=== PATIENT | male | born 1990 | race African-American/Black ===

== ENCOUNTER 2018-08-17 12:51 | Inpatient (IN) | payer OTHER ==
[2018-08-17 13:59] VITALS: BMI 22.1
[2018-08-17] MEDS ORDERED: ACETAMINOPHEN 325 MG TABLET (FP) PO PRN (15:38)
[2018-08-17] MEDS ORDERED: P-EPHED 60MG/TRIPROLIDI 2.5MG TABLET PO PRN (15:38)
[2018-08-17] MEDS ORDERED: MAGNESIUM CITRATE 300 ML BOTTLE PO PRN (15:38)
[2018-08-17] MEDS ORDERED: guaiFENesin/D-METHORPHAN HB 10 ML UNIT-DOSE CUPS PO PRN (15:38)
[2018-08-17] MEDS ORDERED: MAG HYDROX/AL HYDROX/SIMETH 30 ML UNIT-DOSE CUP PO PRN (15:38)
[2018-08-17] MEDS ORDERED: IBUPROFEN 400 MG TABLET (FP) PO PRN (15:38)
[2018-08-17] MEDS ORDERED: MAGNESIUM HYDROX 2400MG/30ML ORAL SUSPENSION 30 ML CUP PO PRN (15:38)
[2018-08-17] MEDS ORDERED: hydrOXYzine PAMOATE 50 MG CAPSULE (FP) PO PRN (15:38)
[2018-08-17] MEDS ORDERED: LOPERAMIDE HCL 2 MG CAPSULE PO PRN (15:38)
[2018-08-17] MEDS ORDERED: MENTHOL/PHENOL 1 EACH UD MM PRN (15:38)
--- NOTE | 2018-08-17 15:48 | HP ---
Admission ROS [facility] Chief Complaint: THC, cocaine and amphetamine rehabilitation Allergies/Adverse Reactions: Allergies Allergy/AdvReac Type Severity Reaction Status Date / Time No Known Allergies Allergy Verified 08/17/18 15:30 History of Present Illness: 27 yo male with hx of nicotine, THC, amphetamine, cocaine rehabilitation. Reports first time seeking treating. PMHX: HIV+ and depression. Denies suicidal / homicidal ideation. Denies hx of seizures or blackouts. Longest period of sobriety three months, recently relapsed two months ago. Exam Limitations: No Limitations - Ebola screening Have you traveled outside of the country in the last 21 days: No Have you had contact with anyone from an Ebola affected area: No Have you been sick,other than usual withdrawal symptoms: No Do you have a fever: No - Review of Systems Constitutional: Chills, Unintentional Wgt. Loss (6 lbs in the past two weeks), Other (sleeps too much) EENT: reports: No Symptoms Reported Respiratory: reports: No Symptoms reported Cardiac: reports: No Symptoms Reported GI: reports: Nausea : reports: No Symptoms Reported Musculoskeletal: reports: Other (left lower rib pain) Integumentary: reports: No Symptoms Reported Neuro: reports: No Symptoms reported Endocrine: reports: No Symptoms Reported Hematology: reports: No Symptoms Reported Psychiatric: reports: No Sypmtoms Reported, Anxious, Depressed Other Systems: Reviewed and Negative Patient History - Patient Medical History Hx Anemia: No Hx Asthma: No Hx Chronic Obstructive Pulmonary Disease (COPD): No Hx Cancer: No Hx Cardiac Disorders: No Hx Congestive Heart Failure: No Hx Hypertension: No Hx Pacemaker: No HX Cerebrovascular Accident: No Hx Seizures: No Hx Dementia: No Hx Diabetes: No Hx Gastrointestinal Disorders: No Hx Liver Disease: No Hx Genitourinary Disorders: No Hx Sexually Transmitted Disorders: No Hx Renal Disease (ESRD): No Hx Thyroid Disease: No Hx Human Immunodeficiency Virus (HIV): Yes (dx 2013) Hx Hepatitis C: No Hx Depression: Yes Hx Suicide Attempt: No Hx Bipolar Disorder: No Hx Schizophrenia: No - Patient Surgical History Past Surgical History: No Anesthesia Reaction: No - PPD History Previous Implant?: No Documented Results: Negative w/o proof - Smoking Cessation Smoking history: Current some day smoker Have you smoked in the past 12 months: Yes Aproximately how many cigarettes per day: 1 Hx Chewing Tobacco Use: No Initiated information on smoking cessation: Yes 'Breaking Loose' booklet given: 08/17/18 - Substance & Tx. History Hx Alcohol Use: No Hx Substance Use: Yes (amphetamine) Substance Use Type: Cocaine, Marijuana Hx Substance Use Treatment: No - Substances Abused Cocaine Route: Smoking Frequency: 1-2 times per week Amount used: 2 gms. Age of first use: 26 Date of Last Use: 08/03/18 Crstal meth Route: Smoking Frequency: Daily Amount used: $120 Age of first use: 24 Date of Last Use: 08/03/18 Marijuana Route: Smoking Frequency: 1-2 times per week Amount used: $10 Age of first use: 13 Date of Last Use: 08/17/18 Family Disease History - Family Disease History Family History: Denies Admission Physical Exam [facility] - Vital Signs Vital Signs: Vital Signs - 24 hr 08/17/18 13:55 Temperature 97.6 F Pulse Rate 90 Respiratory 19 Rate Blood Pressure 131/84 - Physical General Appearance: Yes: No Apparent Distress, Thin, Anxious HEENTM: Yes: EOMI, Hearing grossly Normal, Normal ENT Inspection, Normocephalic , Normal Voice, NICK, Pharynx Normal Respiratory: Yes: Chest Non-Tender, Lungs Clear, Normal Breath Sounds Neck: Yes: Within Normal Limits, No masses,lesions,Nodules Breast: Yes: Breast Exam Deferred Cardiology: Yes: Regular Rhythm, Regular Rate Abdominal: Yes: Normal Bowel Sounds, Non Tender, Flat, Soft Genitourinary: Yes: Within Normal Limits Back: Yes: Normal Inspection Musculoskeletal: Yes: full range of Motion, Gait Steady, Pelvis Stable, Other ( left lower rib pain on palpation) Extremities: Yes: Normal Capillary Refill, Normal Inspection, Normal Range of Motion, Non-Tender 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 intact, Fully Oriented, Alert, Motor Strength 5/5, Normal Mood/Affect, Normal Response Integumentary: Yes: Normal Color, Dry, Warm Lymphatic: Yes: Within Normal Limits - Diagnostic (1) Marijuana dependence Current Visit: Yes Status: Acute (2) Cocaine dependence Current Visit: Yes Status: Acute Qualifiers: Substance use status: uncomplicated Qualified Code(s): F14.20 - Cocaine dependence, uncomplicated (3) HIV (human immunodeficiency virus infection) Current Visit: Yes Status: Chronic (4) Amphetamine dependence Current Visit: Yes Status: Acute [facility]HS Breath Alcohol Content Breath Alcohol Content: 0 Urine Drug Screen - Results Drug Screen Negative: No Urine Drug Screen Results: THC-Marijuana, AMP-Amphetamines Inpatient Rehab Admission - Initial Determination Are CD services needed?: Yes Free of communicable disease: Yes Not in need of hospitalization: Yes - Rehab Admission Criteria Previous failed treatment: No Poor recovery environment: Yes Comorbidities: Yes Lacks judgement: Yes Patient is meeting Inpatient Rehab admission criteria:: Yes
--- NOTE | 2018-08-17 19:47 | PN ---
[facility] Progress Note Note: Patient reports he will call his pharmacy and have his antivirals deliver tomorrow.
[2018-08-17] MEDS: THIAMINE HCL 100 MG TABLET (FP) PO SCH (22:19)
[2018-08-17 23:04] LABS: URINE APPEARANCE CLEAR; URINE BILIRUBIN NEGATIVE (<2.0 mg/dL); URINE COLOR STRAW; URINE GLUCOSE (UA) NEGATIVE (NEGATIVE); URINE KETONE NEGATIVE (NEGATIVE); URINE LEUK ESTERASE NEGATIVE (NEGATIVE); URINE NITRITE NEGATIVE (NEGATIVE); URINE PROTEIN NEGATIVE (NEGATIVE); URINE UROBILINOGEN NEGATIVE mg/dL (0.2-1.0)
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
[2018-08-18 10:49] LABS: HEMATOCRIT 39.2 % (35.4-49); HEMOGLOBIN 12.6 GM/dL (11.7-16.9); MCH 29.1 pg (25.7-33.7); MCHC 32.2 g/dl (32.0-35.9); MEAN CELL VOLUME 90.3 fl (80-96); PLATELET COUNT 254 K/MM3 (134-434); RBC 4.34 M/mm3 (4.00-5.60); RDW 13.6 % (11.9-15.9); WHITE BLOOD COUNT 4.3 K/mm3 (4.0-10.0)
--- NOTE | 2018-08-18 11:02 | EKG ---
Test Reason : Blood Pressure : / mmHG Vent. Rate : 080 BPM Atrial Rate : 080 BPM P-R Int : 124 ms QRS Dur : 078 ms QT Int : 370 ms P-R-T Axes : -88 059 056 degrees QTc Int : 426 ms UNUSUAL P AXIS, POSSIBLE ECTOPIC ATRIAL RHYTHM WITH PREMATURE SUPRAVENTRICULAR COMPLEXES ABNORMAL ECG Confirmed by MD DARIELA, SINTIA ([id number]) on 08/18/2018 11:02:11 AM Referred By: Confirmed By:SINTIA LYLE MD
[2018-08-18] MEDS: PRENATAL VITAMINS W/ FOLIC ACID TABLET (FP) PO SCH (11:05)
[2018-08-18 11:48] LABS: ALBUMIN 3.1 g/dl (3.4-5.0); ALK PHOS 77 U/L (45-117); ANION GAP 11 MMOL/L (8-16); BILIRUBIN,TOTAL 0.2 mg/dL (0.2-1); BLOOD UREA NITROGEN 17 mg/dL (7-18); CALCIUM 8.4 mg/dL (8.5-10.1); CHLORIDE 108 mmol/L (98-107); CO2 24 mmol/L (21-32); CREATININE 0.9 mg/dL (0.55-1.3); GLUCOSE,RANDOM 87 mg/dL (74-106); SGOT/AST 25 U/L (15-37); SGPT/ALT 32 U/L (13-61); SODIUM 142 mmol/L (136-145)
[2018-08-18] MEDS: THIAMINE HCL 100 MG TABLET (FP) PO SCH (21:51)
[2018-08-19] MEDS: PRENATAL VITAMINS W/ FOLIC ACID TABLET (FP) PO SCH (11:19)
[2018-08-19] MEDS: THIAMINE HCL 100 MG TABLET (FP) PO SCH (21:41)
[2018-08-20] MEDS: PRENATAL VITAMINS W/ FOLIC ACID TABLET (FP) PO SCH (10:47)
[2018-08-20] MEDS: THIAMINE HCL 100 MG TABLET (FP) PO SCH (21:44)
[2018-08-21] MEDS: PRENATAL VITAMINS W/ FOLIC ACID TABLET (FP) PO SCH (10:47)
[2018-08-21] MEDS: MELATONIN 5 MG TABLETS PO PRN (21:43)
[2018-08-21] MEDS: THIAMINE HCL 100 MG TABLET (FP) PO SCH (21:43)
[2018-08-22] MEDS: PRENATAL VITAMINS W/ FOLIC ACID TABLET (FP) PO SCH (11:03)
[2018-08-22] MEDS: THIAMINE HCL 100 MG TABLET (FP) PO SCH (22:00)
[2018-08-23] MEDS: PRENATAL VITAMINS W/ FOLIC ACID TABLET (FP) PO SCH (10:49)
[2018-08-23] MEDS: MELATONIN 5 MG TABLETS PO PRN (21:38)
[2018-08-23] MEDS: THIAMINE HCL 100 MG TABLET (FP) PO SCH (21:38)
[2018-08-24 07:33] VITALS: BP 111/55; PULSE 84; TEMP 98.3
[2018-08-24] MEDS: PRENATAL VITAMINS W/ FOLIC ACID TABLET (FP) PO SCH (10:06)
--- NOTE | 2018-08-24 10:09 | PN ---
Psychiatric Progress Note Vital Signs: Vital Signs Period Temp Pulse Resp BP Sys/Verduzco Pulse Ox Last 24 Hr 98.3 F 84 16-18 111/55 Date of Session: 08/24/18 Chief Complaint:: Discharge Note HPI: Patient addressing Cocaine, Amphetamine and Cannabis Dependence comorbid with Nicotine Dependence and Substance-Induced Psychotic Disorder ROS: HIV+ Current Medications: Active Medications Generic Name Dose Route Start Last Admin Trade Name Freq PRN Reason Stop Dose Admin Acetaminophen 650 mg 08/17/18 15:38 Tylenol - PO Q4H PRN FEVER Al Hydroxide/Mg Hydroxide 30 ml 08/17/18 15:38 Mylanta Oral Suspension - PO Q6H PRN DYSPEPSIA Eucalyptus/Menthol/Phenol/Sorbitol 1 each 08/17/18 15:38 Cepastat Lozenge - MM Q4H PRN SORE THROAT Guaifenesin 10 ml 08/17/18 15:38 Robitussin Dm - PO Q6H PRN COUGH Hydroxyzine Pamoate 50 mg 08/17/18 15:38 08/22/18 22:01 Vistaril - PO 50 mg Q4H PRN Administration AGITATION Ibuprofen 400 mg 08/17/18 15:38 Motrin - PO Q6H PRN Pain level 4-6 Loperamide HCl 4 mg 08/17/18 15:38 08/19/18 20:08 Imodium - PO 4 mg Q6H PRN Administration DIARRHEA Magnesium Citrate 300 ml 08/17/18 15:38 Citroma - PO Q48H PRN CONSTIPATION Magnesium Hydroxide 30 ml 08/17/18 15:38 Milk Of Magnesia - PO DAILY PRN CONSTIPATION Melatonin 5 mg 08/17/18 22:00 08/23/18 21:38 Melatonin PO 5 mg HS PRN Administration INSOMNIA Multivit/Folic Acid/Iron 1 tab 08/18/18 10:00 08/23/18 10:49 Vitamins (Sjr) - PO 1 tab DAILY MARILEE Administration Pseudoephedrine/Triprolidine 1 combo 08/17/18 15:38 Actifed - PO TID PRN NASAL CONGESTION Thiamine HCl 100 mg 08/17/18 22:00 08/23/18 21:38 Vitamin B1 - PO 100 mg HS MARILEE Administration Current Side Effect: No Lab tests ordered: Yes Lab tests reviewed: Yes Provider note:: Patient has completed this program today. He has partially met his treatment goals and will continue to address his issues in outpatient treatment at [facility] at [address] [place] [address]. Told junior technical writer that from his participation in this program, he has learned to focus on goals that will benefit him to have a healthy life. He is stable for discharge today Total face to face time:: 35 Mental Status Exam - Mental Status Exam Alert and Oriented to: Time, Place, Person Cognitive Function: Fair Patient Appearance: Well Groomed Mood: Hopeful, Euthymic Affect: Appropriate Patient Behavior: Cooperative Speech Pattern: Clear Voice Loudness: Normal Thought Process: Intact Thought Disorder: Not Present Hallucinations: Denies Suicidal Ideation: Denies Homicidal Ideation: Denies Insight/Judgement: Fair Sleep: Fair Appetite: Good Muscle strength/Tone: Normal Gait/Station: Normal Psychiatric Treatment Plan - Problem List (1) Cocaine dependence Current Visit: Yes Qualifiers: Substance use status: uncomplicated Qualified Code(s): F14.20 - Cocaine dependence, uncomplicated (2) Amphetamine dependence Current Visit: Yes (3) Cannabis dependence Current Visit: Yes (4) Nicotine dependence Current Visit: Yes (5) Substance-induced psychotic disorder Current Visit: Yes (6) Schizophrenia Current Visit: Yes (7) HIV (human immunodeficiency virus infection) Current Visit: Yes Initial treatment plan: Patient is discharged today and referred to [facility] in the [place] for outpatient treatment
== END 2018-08-24 11:15 | disposition home or self-care (01) | DRG 772 ==
LOC: YASAS 12:51 → Y5N 15:51
PROVIDERS: ADMIT Psychiatry & Neurology Psychiatry; ATTEND Psychiatry & Neurology Psychiatry
PROC: HZ42ZZZ Group Counseling for Substance Abuse Treatment, Cognitive-Behavioral (ICD-10-PCS; principal; 2018-08-17)
DX: F14.20 Cocaine dependence, uncomplicated (principal); F15.20 Other stimulant dependence, uncomplicated; F12.20 Cannabis dependence, uncomplicated; F17.210 Nicotine dependence, cigarettes, uncomplicated; F20.9 Schizophrenia, unspecified; F32.9 Major depressive disorder, single episode, unspecified; F19.959 Other psychoactive substance use, unspecified with psychoactive substance-induced psychotic disorder, unspecified
CPT/HCPCS: 36415; 80053; 81003; 85027; 86593; 93005; 93010